=== PATIENT | male | born 2000 | race Hispanic/Latino ===

== ENCOUNTER 2021-11-04 07:41 | Emergency (ER) | payer OTHER ==
[~2021-11-04] VITALS: Ht 175.3 cm; Wt 95.3 kg
[2021-11-04] MEDS ORDERED: KETOROLAC TROMETHAMINE 30 MG/ML VIAL IM STA (07:49)
[2021-11-04] MEDS ORDERED: CYCLOBENZAPRINE HCL 10 MG TAB PO ONE (08:00)
[2021-11-04] MEDS ORDERED: LIDOCAINE1 EAC1 TD (08:55)
[2021-11-04] MEDS ORDERED: NAPROSYN500 MG PO (08:55)
[2021-11-04] MEDS ORDERED: CYCLOBENZAPRINE10 MG PO (08:55)
[2021-11-04 09:51] VITALS: BP 130/67
== END 2021-11-04 09:52 | disposition home or self-care (01) ==
LOC: ER 07:50
DX: M54.2 Cervicalgia (principal); M79.18 Myalgia, other site; R01.1 Cardiac murmur, unspecified
CPT/HCPCS: 70360; 99283; J1885